=== PATIENT | female | born 1970 | race Caucasian/White ===

== ENCOUNTER 2017-06-13 11:29 | Emergency (ER) | payer SELFPAY ==
--- NOTE | 2017-06-13 13:11 | RAD REPORT ---
EXAM DESCRIPTION: Mari Single View06/13/2017 12:59 pm CLINICAL HISTORY: Cough COMPARISON: 2014 FINDINGS: The lungs appear clear of acute infiltrate. The heart is normal size IMPRESSION: No acute abnormalities displayed
[2017-06-13] MEDS ORDERED: NA CHLORIDE 0.9% 1,000 ML ONE (13:16)
[2017-06-13] MEDS ORDERED: ONDANSETRON 4 MG/2 ML VIAL ONE (13:16)
[2017-06-13] MEDS ORDERED: FENTANYL CITR 100 MCG/2 ML ONE (13:16)
--- NOTE | 2017-06-13 13:26 | RAD REPORT ---
EXAM DESCRIPTION: VASExtremitkaran Venous Uni Ltd06/13/2017 12:50 pm CLINICAL HISTORY: Left arm swelling COMPARISON: 2014 FINDINGS: The left internal jugular, left subclavian, left cephalic, left axillary, left brachial, l eft basilic, left ulnar and left radial veins are generally compressible and demonstrate augmentation . Doppler demonstrates good flow. IMPRESSION: No evidence of thrombus within the veins of the left upper extremity
[2017-06-13 13:41] LABS: Absolute Lymphocytes (CBC) 1.9 K/uL (0.7-4.9); Absolute Monocytes 0.4 K/uL (0.1-1.3); Absolute Neutrophil 4.9 K/uL (1.8-8.0); Basophils % 0.6 % (0-1.3); Eosinophils % 2.6 % (0-4.4); Hematocrit 40.6 % (36.0-45.0); MCH 30.5 pg (27.0-35.0); MCV 89.4 fL (80-100); MPV 8.1 fL (7.6-11.3); Monocytes % 5.4 % (3.3-12.3); RBC Red Blood Cell Count 4.55 M/uL (3.86-4.86)
[2017-06-13 13:53] LABS: Protime INR 0.95
[2017-06-13 13:58] LABS: ALT/SGPT 23 IU/L (10-60); AST/SGOT 24 IU/L (10-42); Alkaline Phosphatase 103 IU/L (42-121); Bicarbonate 26 mEq/L (21-31); Bilirubin Direct 0.1 mg/dL (0-0.2); CKMB Creatine Kinase MB 2.2 ng/ml (0.3-4.0); Creatine Phosphokinase 120 IU/L (22-269); Glucose Level 100 mg/dL (65-120); Potassium 3.6 mEq/L (3.6-5.0); Protein, Total 7.2 g/dL (6.0-8.3); Sodium Level 138 mEq/L (135-145)
[2017-06-13 13:59] LABS: Albumin 4.4 g/dL (3.2-5.5); BUN Blood Urea Nitrogen 12 mg/dL (6-20); Bilirubin Total 0.5 mg/dL (0.3-1.2); Magnesium 1.9 mg/dL (1.8-2.5)
--- NOTE | 2017-06-13 14:07 | RAD REPORT ---
EXAM DESCRIPTION: RAD - Shoulder Left 2 View - 06/13/2017 1:55 pm CLINICAL HISTORY: Left shoulder pain FINDINGS: No fracture or dislocation is seen. Mild narrowing involves the acromioclavicular joint
--- NOTE | 2017-06-13 14:41 | RAD REPORT ---
EXAM DESCRIPTION: CT - Head C Spine Mpr Wo Con - 06/13/2017 2:19 pm CLINICAL HISTORY: Headache left arm radiculopathy COMPARISON: None. TECHNIQUE: Computed axial tomography of the head and cervical spine was obtained. Sagittal and coronal reconstruction was performed. All CT scans are performed using dose optimization technique as appropriate and may include automated exposure control or mA/KV adjustment according to patient size. FINDINGS: An intracranial bleed is not seen. The ventricles are normal in caliber. An extra-axial fl uid collection is not noted.Fluid within the visualized sinuses and mastoids is not seen A cervical fracture is not visualized. No dislocation is noted. Spondylosis C3-4 results in mild to moderate narrowing of the left neural foramina. There is a questi onable small left posterior-lateral disc herniation C6-7 IMPRESSION: No acute intracranial abnormality is seen. A cervical fracture is not visualized. 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
[2017-06-13 14:52] LABS: Urine Blood 1+ (NEG); Urine Glucose NEGATIVE (NEG); Urine Protein NEGATIVE (NEG); Urine Specific Gravity 1.015 (1.005-1.030)
--- NOTE | 2017-06-13 15:23 | EKG ---
Test Date: 2017-06-13 Test Time: 13:59:26 Frame Feeder: TC MEASUREMENT RESULTS: Intervals: Rate: 69 ID: [id number] QRSD: 76 QT: 424 QTc: 454 [place]: P: 68 ID: [id number] QRS: 68 T: 53 INTERPRETIVE STATEMENTS: Normal sinus rhythm Nonspecific T wave abnormality Abnormal ECG Compared to ECG 04/05/2014 11:58:59 T-wave abnormality now present Electronically Signed On 06-13-17 15:23:07 CDT by Bello Staples
[2017-06-13 15:44] LABS: CKMB Creatine Kinase MB 1.7 ng/ml (0.3-4.0)
--- NOTE | 2017-06-13 15:59 | EDPHYS ---
Physician Documentation [facility] Name: Carmen Arreola Age: 46 yrs Sex: Female : 1970 Arrival Date: 06/13/2017 Time: 11:30 Bed 25 Private MD: ED Physician Eriberto Garcia HPI: 06/13 12:40 This 46 yrs old Female presents to ER via Ambulatory with complaints of haryr Headache, Arm Pain, Neck Pain, <24hrs Old. 12:40 The patient complains of pain to the forehead, left temporal area and right temporal harry area. The patient describes the headache as aching. Onset: The symptoms/episode began/occurred 2 day(s) ago. 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 - Social history:: Smoking status: Patient/guardian denies using tobacco. ROS: 12:40 Constitutional: Negative for fever, chills, and weight loss, Eyes: Negative for injury, harry pain, redness, and discharge, ENT: Negative for injury, pain, and discharge, Neck: Negative for injury, pain, and swelling, Cardiovascular: Negative for chest pain, palpitations, and edema, Respiratory: Negative for shortness of breath, cough, wheezing, and pleuritic chest pain, Abdomen/GI: Negative for abdominal pain, nausea, vomiting, diarrhea, and constipation, Back: Negative for injury and pain, : Negative for injury, bleeding, discharge, and swelling, Skin: Negative for injury, rash, and discoloration, Neuro: Negative for headache, weakness, numbness, tingling, and seizure, Psych: Negative for depression, anxiety, suicide ideation, homicidal ideation, and hallucinations, Allergy/Immunology: Negative for hives, rash, and allergies, Endocrine: Negative for neck swelling, polydipsia, polyuria, polyphagia, and marked weight changes, Hematologic/Lymphatic: Negative for swollen nodes, abnormal bleeding, and unusual bruising. 12:40 : Negative for injury or acute deformity. 12:40 MS/extremity: Positive for 12:40 MS/extremity: Positive for decreased range of motion, pain, tenderness, of the left arm. Exam: 12:40 Constitutional: This is a well developed, well nourished patient who is awake, alert, harry and in no acute distress. Head/Face: Normocephalic, atraumatic. Eyes: Pupils equal round and reactive to light, extra-ocular motions intact. Lids and lashes normal. Conjunctiva and sclera are non-icteric and not injected. Cornea within normal limits. Periorbital areas with no swelling, redness, or edema. ENT: Nares patent. No nasal discharge, no septal abnormalities noted. Tympanic membranes are normal and external auditory canals are clear. Oropharynx with no redness, swelling, or masses, exudates, or evidence of obstruction, uvula midline. Mucous membranes moist. Neck: Trachea midline, no thyromegaly or masses palpated, and no cervical lymphadenopathy. Supple, full range of motion without nuchal rigidity, or vertebral point tenderness. No Meningismus. Chest/axilla: Normal chest wall appearance and motion. Nontender with no deformity. No lesions are appreciated. Cardiovascular: Regular rate and rhythm with a normal S1 and S2. No gallops, murmurs, or rubs. Normal PMI, no JVD. No pulse deficits. Respiratory: Lungs have equal breath sounds bilaterally, clear to auscultation and percussion. No rales, rhonchi or wheezes noted. No increased work of breathing, no retractions or nasal flaring. Abdomen/GI: Soft, non-tender, with normal bowel sounds. No distension or tympany. No guarding or rebound. No evidence of tenderness throughout. Back: No spinal tenderness. No costovertebral tenderness. Full range of motion. Skin: Warm, dry with normal turgor. Normal color with no rashes, no lesions, and no evidence of cellulitis. Neuro: Awake and alert, GCS 15, oriented to person, place, time, and situation. Cranial nerves II-XII grossly intact. Motor strength 5/5 in all extremities. Sensory grossly intact. Cerebellar exam normal. Normal gait. Psych: Awake, alert, with orientation to person, place and time. Behavior, mood, and affect are within normal limits. 12:40 Musculoskeletal/extremity: Extremities: noted in the left arm: decreased ROM, pain, ROM: full passive range of motion, limited active range of motion, Circulation is intact in all extremities. Sensation intact. Compartment Syndrome exam of affected extremity: is normal. Joints: All joints are normal except painful range of motion, tenderness, DVT Exam: negative Homans' sign noted on exam, no appreciated bluish discoloration, no erythema, no increased warmth, pain, swelling, tenderness. Vital Signs: 11:34 BP 147 / 87; Pulse 84; Resp 16; Temp 97.8; Pulse Ox 100% on R/A; Weight 88.45 kg; hb Height 5 ft. 2 in. (157.48 cm); Pain 8/10; 12:27 BP 149 / 73; Pulse 82; Resp 18; Pulse Ox 99% on R/A; aj1 13:45 BP 155 / 84; Pulse 71; Resp 18; Pulse Ox 100% on R/A; aj1 14:45 BP 165 / 92; Pulse 87; Resp 18; Pulse Ox 100% on R/A; aj1 16:17 BP 167 / 98; Pulse 86; Resp 17; Pulse Ox 100% on R/A; rk2 11:34 Body Mass Index 35.67 (88.45 kg, 157.48 cm) hb MDM: 12:01 Patient medically screened. [facility] 12:43 Data reviewed: vital signs, nurses notes, lab test result(s), EKG, radiologic studies, harry plain films, ultrasound. 06/13 12:38 Order name: Basic Metabolic Panel; Complete Time: 15:05 [facility] 06/13 12:38 Order name: BNP; Complete Time: 15:05 [facility] 06/13 12:38 Order name: CBC with Diff; Complete Time: 13:54 [facility] 06/13 12:38 Order name: Ckmb; Complete Time: 15:05 [facility] 06/13 12:38 Order name: CPK; Complete Time: 15:05 [facility] 06/13 12:38 Order name: LFT's; Complete Time: 15:05 [facility] 06/13 12:38 Order name: Magnesium; Complete Time: 15:05 [facility] 06/13 12:38 Order name: PT-INR; Complete Time: 13:54 [facility] 06/13 12:38 Order name: Ptt, Activated; Complete Time: 13:54 [facility] 06/13 12:38 Order name: Troponin (emerg Dept Use Only); Complete Time: 15:05 harry 06/13 14:25 Order name: Ckmb; Complete Time: 15:59 06/13 14:25 Order name: Creatine Phosphokinase; Complete Time: 15:59 06/13 14:25 Order name: Troponin (emerg Dept Use Only); Complete Time: 15:45 06/13 14:33 Order name: Urine Dipstick--Ancillary (enter results); Complete Time: 15:05 06/13 12:38 Order name: XRAY Chest (1 view); Complete Time: 13:54 06/13 12:38 Order name: EKG; Complete Time: 12:39 06/13 12:38 Order name: Cardiac monitoring; Complete Time: 13:35 06/13 12:38 Order name: EKG - Nurse/Tech; Complete Time: 14:53 06/13 12:38 Order name: IV Saline Lock; Complete Time: 13:35 06/13 12:38 Order name: Labs collected and sent; Complete Time: 13:35 06/13 12:38 Order name: O2 Per Protocol; Complete Time: 13:35 harry 06/13 12:38 Order name: US Extremity Venous Uni Ltd; Complete Time: 13:54 06/13 13:15 Order name: Shoulder Left (2 View) XRAY; Complete Time: 15:05 06/13 13:55 Order name: CT Head C Spine; Complete Time: 15:05 harry 06/13 14:33 Order name: Urine --Ancillary (enter results); Complete Time: 15:05 06/13 12:38 Order name: O2 Sat Monitoring; Complete Time: 13:35 06/13 12:38 Order name: Urine Dipstick-Ancillary (obtain specimen); Complete Time: 13:35 06/13 15:59 Order name: Sling; Complete Time: 16:43 harry Administered Medications: 13:32 Drug: NS 0.9% 1000 ml Route: IV; Rate: 1 bolus; Site: right antecubital; aj1 15:30 Follow up: Response: No adverse reaction; IV Status: Completed infusion rk2 13:32 Drug: fentaNYL (PF) 25 mcg Route: IVP; Site: right antecubital; aj1 13:49 Follow up: Response: No adverse reaction aj1 13:33 Drug: Zofran 4 mg Route: IVP; Site: right antecubital; aj1 13:48 Follow up: Response: No adverse reaction aj1 15:03 Drug: fentaNYL (PF) 25 mcg Route: IVP; Site: right antecubital; aj1 16:44 Follow up: Response: No adverse reaction; Pain is decreased rk2 16:21 Drug: TORadol 30 mg Route: IVP; Site: right antecubital; rk2 16:44 Follow up: Given \T\ DC rk2 Disposition: 06/13/17 15:58 Discharged to Home. Impression: Pain in left arm, Spondylolysis, Spondylolysis, cervical region, Radiculopathy, cervical region. - Condition is Stable. - Discharge Instructions: Cervical Radiculopathy, Musculoskeletal Pain, Shoulder Pain, Shoulder Pain, [id number], Cervical Radiculopathy, [id number]. - Prescriptions for Ibuprofen 600 mg Oral Tablet - take 1 tablet by ORAL route every 6 hours As needed take with food; 20 tablet. Tylenol- Codeine #3 300-30 mg Oral Tablet - take 2 tablet by ORAL route every 6 hours As needed; 30 tablet. Medrol (Vito) 4 mg Oral Tablets, Dose Pack - take 1 tablet by ORAL route as directed - follow package instructions; 1 packet. - Medication Reconciliation Form, Thank You Letter, Antibiotic Education, Prescription Opioid Use form. - Follow up: Private Physician; When: 2 - 3 days; Reason: Recheck today's complaints, Continuance of care, Re-evaluation by your physician. Follow up: Isaias Grier; When: 2 - 3 days; Reason: Recheck today's complaints, Continuance of care, Re-evaluation by your physician. - Problem is new. - Symptoms have improved. Signatures: Dispatcher [employer] Melissa Obrien RN RN aj1 Eriberto Garcia MD MD cha Baxter, Heather, RN RN Martha Jose RN RN rk2
--- NOTE | 2017-06-13 15:59 | ER ---
Nurse's Notes [facility] Name: Carmen Arreola Age: 46 yrs Sex: Female : 1970 Arrival Date: 06/13/2017 Time: 11:30 Bed 25 Private MD: Diagnosis: Pain in left arm;Spondylolysis;Spondylolysis, cervical region;Radiculopathy, cervical region Presentation: 06/13 11:31 Presenting complaint: Patient states: Left sided neck pain that radiates to left hand, hb left arm tingling, and headache since last night at approx 1030 PM. Denies injuy. Transition of care: patient was not received from another setting of care. Onset of symptoms was June 12, 2017 at 22:30. Initial Sepsis Screen: Does the patient meet any 2 criteria? No. Patient's initial sepsis screen is negative. Does the patient have a suspected source of infection? No. Patient's initial sepsis screen is negative. Care prior to arrival: None. 11:31 Method Of Arrival: Ambulatory hb 11:31 Acuity: MOSES 3 hb Triage Assessment: 15:30 Pain: Complains of pain in right temporal area and left temporal area and forehead and rk2 left arm and neck and left side of neck Also complains of. 15:30 Headache History: Other Unk. General: Appears in no apparent distress. General: rk2 Behavior is calm, cooperative. Pain: Pain currently is 5 out of 10 on a pain scale. 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 - Social history:: Smoking status: Patient/guardian denies using tobacco. Screenin:40 Abuse screen: Denies threats or abuse. Denies injuries from another. Nutritional aj1 screening: No deficits noted. Tuberculosis screening: No symptoms or risk factors identified. 16:52 Fall Risk None identified. rk2 Assessment: 11:40 General: Appears in no apparent distress. uncomfortable, Behavior is calm, cooperative, aj1 appropriate for age. Pain: Complains of pain in left side of neck Pain radiates to left arm Pain currently is 8 out of 10 on a pain scale. Quality of pain is described as throbbing, Pain began at 2230 last night Alleviated by nothing. Aggravated by movement. Neuro: Level of Consciousness is awake, alert, obeys commands, Oriented to person, place, time, situation, Moves all extremities. Full function Gait is steady, Speech is normal, Facial symmetry appears normal, paresthesias in left arm. Cardiovascular: Patient's skin is warm and dry. Respiratory: Airway is patent Respiratory effort is even, unlabored, Respiratory pattern is regular, symmetrical. GI: No signs and/or symptoms were reported involving the gastrointestinal system. : No signs and/or symptoms were reported regarding the genitourinary system. EENT: No signs and/or symptoms were reported regarding the EENT system. Derm: No signs and/or symptoms reported regarding the dermatologic system. Skin is pink, warm \T\ dry. normal. Musculoskeletal: Circulation, motion, and sensation intact. Range of motion: intact in all extremities, patient states that she has no trouble moving her neck, states she has pulled a muscle in her neck before and she wasn't able to move her neck at that time, but she is not experiencing that now. 12:27 Reassessment: Patient appears in no apparent distress at this time. No changes from aj1 previously documented assessment. Patient and/or family updated on plan of care and expected duration. Pain level reassessed. Patient is alert, oriented x 3, equal unlabored respirations, skin warm/dry/pink. 12:30 Reassessment: Verified with patient that she has a ride home prior to administering aj1 Fentanyl. Patient states that either her mom or her daughter will pick her up. 13:34 Reassessment: Patient appears in no apparent distress at this time. No changes from aj1 previously documented assessment. Patient and/or family updated on plan of care and expected duration. Pain level reassessed. Patient is alert, oriented x 3, equal unlabored respirations, skin warm/dry/pink. 14:45 Reassessment: Patient appears in no apparent distress at this time. No changes from aj1 previously documented assessment. Patient and/or family updated on plan of care and expected duration. Pain level reassessed. Patient is alert, oriented x 3, equal unlabored respirations, skin warm/dry/pink. Vital Signs: 11:34 BP 147 / 87; Pulse 84; Resp 16; Temp 97.8; Pulse Ox 100% on R/A; Weight 88.45 kg; hb Height 5 ft. 2 in. (157.48 cm); Pain 8/10; 12:27 BP 149 / 73; Pulse 82; Resp 18; Pulse Ox 99% on R/A; aj1 13:45 BP 155 / 84; Pulse 71; Resp 18; Pulse Ox 100% on R/A; aj1 14:45 BP 165 / 92; Pulse 87; Resp 18; Pulse Ox 100% on R/A; aj1 16:17 BP 167 / 98; Pulse 86; Resp 17; Pulse Ox 100% on R/A; rk2 11:34 Body Mass Index 35.67 (88.45 kg, 157.48 cm) hb ED Course: 11:30 Patient arrived in ED. as 11:33 Triage completed. hb 11:34 Arm band placed on right wrist. hb 11:37 Melissa Raya, RN is Primary Nurse. aj1 11:40 Patient has correct armband on for positive identification. Bed in low position. Call aj1 light in reach. Side rails up X 1. 11:40 No provider procedures requiring assistance completed. aj1 12:01 Eriberto Garcia MD is Attending Physician. harry 12:41 Note: us being done portable. lc3 12:50 US Extremity Venous Uni Ltd In Process Unspecified. EDMS 12:55 X-ray completed. Portable x-ray completed in exam room. Patient tolerated procedure jb2 well. 12:59 XRAY Chest (1 view) In Process Unspecified. EDMS 13:19 Ultrasound completed. Patient tolerated well. lc3 13:31 X-ray completed. Portable x-ray completed in exam room. Patient tolerated procedure jb2 well. 13:33 Shoulder Left (2 View) XRAY In Process Unspecified. EDMS 13:35 Initial lab(s) drawn, by me, sent to lab. Urine collected: clean catch specimen, clear. dh3 Inserted saline lock: 20 gauge in right antecubital area, using aseptic technique. Blood collected. 14:14 EKG done, by hemodialysis technician. reviewed by Eriberto Garcia MD. tc 14:19 CT Head C Spine In Process Unspecified. EDMS 15:58 Isaias Grier MD is Referral Physician. harry 16:52 IV discontinued. rk2 Administered Medications: 13:32 Drug: NS 0.9% 1000 ml Route: IV; Rate: 1 bolus; Site: right antecubital; aj1 15:30 Follow up: Response: No adverse reaction; IV Status: Completed infusion rk2 13:32 Drug: fentaNYL (PF) 25 mcg Route: IVP; Site: right antecubital; aj1 13:49 Follow up: Response: No adverse reaction aj1 13:33 Drug: Zofran 4 mg Route: IVP; Site: right antecubital; aj1 13:48 Follow up: Response: No adverse reaction aj1 15:03 Drug: fentaNYL (PF) 25 mcg Route: IVP; Site: right antecubital; aj1 16:44 Follow up: Response: No adverse reaction; Pain is decreased rk2 16:21 Drug: TORadol 30 mg Route: IVP; Site: right antecubital; rk2 16:44 Follow up: Given \T\ DC rk2 Intake: Outcome: 15:58 Discharge ordered by . [facility] 16:52 Discharged to home ambulatory. rk2 16:52 Condition: good 16:52 Discharge instructions given to patient, Prescriptions given X 3. 16:53 Patient left the ED. rk2 Signatures: Dispatcher [employer] EDMS Melissa Raya, RN RN aj1 Eriberto Garcia MD MD cha Buechter, Jesse Halie Saunders Tiffany, training program developer EKG Ttc Alexys Sorto Heather, RN RN hb Herrera, Deanna [facility] Martha Rodríguez RN RN rk2
[2017-06-13] MEDS ORDERED: KETOROLAC 30 MG/ML INJ ONE (16:18)
== END 2017-06-13 16:53 | disposition home or self-care (01) ==
LOC: ER 11:29
DX: M47.892 Other spondylosis, cervical region (principal); M54.12 Radiculopathy, cervical region; I10 Essential (primary) hypertension; Z88.0 Allergy status to penicillin
CPT/HCPCS: 36415; 70450; 71045; 72125; 80048; 80076; 81003; 81025; 82550; 82553; 83735; 83880; 84484; 85025; 85610; 85730; 93005; 93971; 96361; 96374; 96375; 99284; J2405; J3010; J7030